=== PATIENT | male | born 1940 | race Caucasian/White ===

== ENCOUNTER 2016-06-08 11:02 | Inpatient (IN) | payer OTHER ==
[~2016-06-08] VITALS: Ht 182.9 cm; Wt 83.6 kg
[~2016-06-08 11:02] MED LIST: ASPIR 8181 M1 PO; ASPIR-LOW81 M1 PO; COLACE CLEAR50 MG PO; COLACE50 MG PO; GRAFCO SILVER1 EACH TP; JAKAFI15 MG PO; LASIX20 MG PO; LEVAQUIN500 MG PO; METOPROLOL SUCC25 MG PO; METOPROLOL SUCC50 MG PO; MULTI-DAY VITA1 EACH PO; MULTIVITAMIN1 EAC2 PO; NEILMED SINUS1 EAC4 BOTH NARES; NEXIUM20 MG PO; NORVASC5 MG PO; ORAZINC220 MG PO; PHILLIPS'400 MG/5 M PO; PREVACID30 MG PO; Protonix PO; TOPROL XL6.25 MG PO; VITAMIN B122500 MCG PO; ZESTRIL2.5 MG PO; ZINC50 M1 PO; ZOFRAN4 MG PO
[2016-06-08 11:35] LABS: ADD MIUA? NO; BILIRUBIN NEGATIVE; BLOOD NEGATIVE; COLOR DK YELLOW ((YELLOW)); GLUCOSE (STRIP) NEGATIVE; KETONES NEGATIVE; LEUKOCYTES NEGATIVE; NITRITE NEGATIVE; PH, URINE 5.5 (5-8); PROTEIN (STRIP) 30; SPECIFIC GRAVITY 1.025 (1.000-1.030); UCUL ADDED? NO
[2016-06-08 11:44] LABS: HEMATOCRIT 30.9 % (38.0-50.0); MCH 24.8 PG (29.0-34.0); MCHC 30.7 G/DL (30.0-36.0); MCV 80.7 FL (86-99); MEAN PLAT.VOLUME 8.7 uM^3 (9.0-12.4); PLATELET COUNT 208 K/uL (156-360); RBC DIS.WIDTH-CV 19.9 % (11.8-14.6); RBC DIS.WIDTH-SD 55.7 % (39-53); RED BLOOD COUNT 3.83 M/uL (4.00-5.50)
[2016-06-08 11:46] LABS: WHITE BLOOD COUNT 8.4 K/uL (4.1-10.2)
[2016-06-08 11:50] LABS: INTER. NORMALIZED RATIO 1.2; PROTHROMBIN TIME 12.5 (9.2-11.2); PTT 30.7 (25-32)
[2016-06-08 11:51] LABS: CHLORIDE 106 mEq/L (99-109); POTASSIUM 4.3 mEq/L (3.7-5.4); SODIUM 141 mEq/L (136-147)
[2016-06-08 11:53] LABS: GLUCOSE 95 mg/dL (70-99)
[2016-06-08 11:54] LABS: ANION GAP 10 MEQ/L (2-14)
[2016-06-08 11:55] LABS: TOTAL BILIRUBIN 2.3 mg/dL (0.0-1.0)
[2016-06-08 11:57] LABS: ALKALINE PHOSPHATASE 148 IU/L (3-129); GFR ESTIMATE (CALCULATED) 49 mL/min/
[2016-06-08 11:58] LABS: UREA NITROGEN (BUN) 17 mg/dL (9-23)
[2016-06-08 12:00] LABS: LIPASE 15 U/L (1.0-51.0)
[2016-06-08] MEDS ORDERED: JAKAFI15 MG PO (18:50)
[2016-06-08] MEDS ORDERED: TOPROL XL25 MG PO (18:50)
[2016-06-08] MEDS ORDERED: B-121000 MC2 PO (18:54)
[2016-06-08] MEDS ORDERED: BACTROBAN OINTM22 GM TP (18:59)
[2016-06-08] MEDS ORDERED: TYLENOL EXTRA500 MG PO (19:00)
[2016-06-09 00:26] VITALS: BP 104/68
[2016-06-09 06:49] LABS: ANION GAP 9 MEQ/L (2-14); CHLORIDE 109 MEQ/L (99-109); GFR ESTIMATE (CALCULATED) 49 mL/min/; GLUCOSE 84 mg/dL (70-99); POTASSIUM 4.2 MEQ/L (3.7-5.4); SAMPLE HEMOLYSIS CHECK 0; SAMPLE ICTERIC CHECK 0; SAMPLE LIPEMIA CHECK 0; SODIUM 144 MEQ/L (136-147); UREA NITROGEN (BUN) 17 mg/dL (9-23)
[2016-06-09 07:09] LABS: HEMATOCRIT 25.7 % (38.0-50.0); MCH 25.2 PG (29.0-34.0); MCHC 31.1 G/DL (30.0-36.0); MCV 80.8 FL (86-99); RBC DIS.WIDTH-CV 20.2 % (11.8-14.6); RBC DIS.WIDTH-SD 58.8 % (39-53); RED BLOOD COUNT 3.18 M/uL (4.00-5.50); WHITE BLOOD COUNT 6.3 K/uL (4.1-10.2)
[2016-06-09 07:10] LABS: DELETE MACHINE DIFF? YES
[2016-06-09 07:35] LABS: ABS NEUTROPHIL COUNT 5.04; ANISOCYTOSIS 1+; MICROCYTOSIS 1+; OVALOCYTES 1+; PLAT.SUFFICIENCY DECREASED; POLYCHROMASIA 1+; SCHISTOCYTES OCC; TEAR DROP CELLS 1+; USER ID TLN
[2016-06-09 07:39] LABS: PLATELET COUNT 137 K/uL (156-360)
[2016-06-09 08:00] VITALS: BP 104/61
[2016-06-09 14:07] VITALS: BP 116/68
[2016-06-09 17:10] VITALS: BP 107/71
[2016-06-09 21:09] VITALS: BP 112/80
[2016-06-10] VITALS (7 sets, daily range): BP systolic 100–122; BP diastolic 65–84
[2016-06-10 07:09] LABS: HEMATOCRIT 25.4 % (38.0-50.0); MCHC 30.7 G/DL (30.0-36.0); MCV 81.4 FL (86-99); MEAN PLAT.VOLUME 9.1 uM^3 (9.0-12.4); PLATELET COUNT 127 K/uL (156-360); RBC DIS.WIDTH-CV 20.3 % (11.8-14.6); RBC DIS.WIDTH-SD 58.6 % (39-53); RED BLOOD COUNT 3.12 M/uL (4.00-5.50)
[2016-06-10 07:38] LABS: ALKALINE PHOSPHATASE 96 IU/L (3-129); ANION GAP 8 MEQ/L (2-14); CHLORIDE 108 MEQ/L (99-109); GFR ESTIMATE (CALCULATED) 53 mL/min/; GLUCOSE 83 mg/dL (70-99); SAMPLE HEMOLYSIS CHECK 0; SAMPLE ICTERIC CHECK 0; SAMPLE LIPEMIA CHECK 0; SODIUM 142 MEQ/L (136-147); TOTAL BILIRUBIN 1.4 MG/DL (0.0-1.0); UREA NITROGEN (BUN) 18 mg/dL (9-23)
[2016-06-10 07:39] LABS: POTASSIUM 5.1 MEQ/L (3.7-5.4)
[2016-06-10 11:28] LABS: POINT-OF-CARE METER ID UU13113725
[2016-06-11 03:55] VITALS: BP 106/59
[2016-06-11 05:56] LABS: HEMATOCRIT 25.5 % (38.0-50.0); MCH 24.8 PG (29.0-34.0); MCHC 30.6 G/DL (30.0-36.0); MCV 81.2 FL (86-99); MEAN PLAT.VOLUME 9.8 uM^3 (9.0-12.4); PLATELET COUNT 132 K/uL (156-360); RBC DIS.WIDTH-CV 20.1 % (11.8-14.6); RBC DIS.WIDTH-SD 59.5 % (39-53); RED BLOOD COUNT 3.14 M/uL (4.00-5.50); WHITE BLOOD COUNT 6.9 K/uL (4.1-10.2)
[2016-06-11 07:57] VITALS: BP 114/69
[2016-06-11 16:05] VITALS: BP 108/70
[2016-06-11 23:23] VITALS: BP 106/68
[2016-06-12] VITALS (7 sets, daily range): BP systolic 100–112; BP diastolic 65–75
[2016-06-12 09:54] LABS: HEMATOCRIT 29.5 % (38.0-50.0); MCH 25.3 PG (29.0-34.0); MCHC 30.8 G/DL (30.0-36.0); MCV 81.9 FL (86-99); MEAN PLAT.VOLUME 9.5 uM^3 (9.0-12.4); PLATELET COUNT 163 K/uL (156-360); RBC DIS.WIDTH-CV 19.6 % (11.8-14.6); RBC DIS.WIDTH-SD 58.1 % (39-53)
[2016-06-12 10:34] LABS: ANION GAP 11 MEQ/L (2-14); CHLORIDE 106 MEQ/L (99-109); GFR ESTIMATE (CALCULATED) 49 mL/min/; SAMPLE HEMOLYSIS CHECK 0; SAMPLE ICTERIC CHECK 0; SAMPLE LIPEMIA CHECK 0; SODIUM 142 MEQ/L (136-147); UREA NITROGEN (BUN) 13 mg/dL (9-23)
[2016-06-12 10:35] LABS: GLUCOSE 137 mg/dL (70-99)
[2016-06-12 10:50] LABS: C DIFF TOXIN NEGATIVE (NEGATIVE)
[2016-06-12 10:57] LABS: PROBE CHECK PASS; SPECIMEN PROCESSING CONTROL PASS
[2016-06-13 06:42] LABS: HEMATOCRIT 27.7 % (38.0-50.0); MCH 25.3 PG (29.0-34.0); MCV 81.5 FL (86-99); MEAN PLAT.VOLUME 9.9 uM^3 (9.0-12.4); PLATELET COUNT 135 K/uL (156-360); RBC DIS.WIDTH-CV 19.7 % (11.8-14.6); RBC DIS.WIDTH-SD 58.4 % (39-53); WHITE BLOOD COUNT 7.6 K/uL (4.1-10.2)
[2016-06-13 07:20] LABS: ANION GAP 8 MEQ/L (2-14); CHLORIDE 110 MEQ/L (99-109); GFR ESTIMATE (CALCULATED) 53 mL/min/; MAGNESIUM 1.9 mg/dl (1.3-2.7); POTASSIUM 3.9 MEQ/L (3.7-5.4); SAMPLE HEMOLYSIS CHECK 0; SAMPLE ICTERIC CHECK 0; SAMPLE LIPEMIA CHECK 0; SODIUM 144 MEQ/L (136-147); UREA NITROGEN (BUN) 12 mg/dL (9-23)
[2016-06-13 07:23] LABS: GLUCOSE 82 mg/dL (70-99)
[2016-06-13 08:00] VITALS: BP 103/66
[2016-06-13 09:10] VITALS: BP 99/61
[2016-06-13 17:24] VITALS: BP 97/63
[2016-06-13 23:45] VITALS: BP 114/73
[2016-06-14 07:17] VITALS: BP 111/73
[2016-06-14 07:18] LABS: HEMATOCRIT 28.2 % (38.0-50.0); MCH 26.1 PG (29.0-34.0); MCHC 31.6 G/DL (30.0-36.0); MCV 82.7 FL (86-99); PLATELET COUNT 119 K/uL (156-360); RBC DIS.WIDTH-CV 19.7 % (11.8-14.6); RED BLOOD COUNT 3.41 M/uL (4.00-5.50); WHITE BLOOD COUNT 6.3 K/uL (4.1-10.2)
[2016-06-14 07:44] LABS: ANION GAP 10 MEQ/L (2-14); CHLORIDE 111 MEQ/L (99-109); GFR ESTIMATE (CALCULATED) 57 mL/min/; GLUCOSE 78 mg/dL (70-99); SAMPLE HEMOLYSIS CHECK 0; SAMPLE ICTERIC CHECK 0; SAMPLE LIPEMIA CHECK 0; SODIUM 144 MEQ/L (136-147); UREA NITROGEN (BUN) 13 mg/dL (9-23)
[2016-06-14 17:58] VITALS: BP 104/66
[2016-06-14 23:41] VITALS: BP 113/66
[2016-06-15 07:00] VITALS: BP 117/75
[2016-06-15 07:19] LABS: HEMATOCRIT 28.9 % (38.0-50.0); MCH 25.1 PG (29.0-34.0); MCHC 30.4 G/DL (30.0-36.0); MCV 82.3 FL (86-99); MEAN PLAT.VOLUME 9.4 uM^3 (9.0-12.4); PLATELET COUNT 130 K/uL (156-360); RBC DIS.WIDTH-SD 59.8 % (39-53); RED BLOOD COUNT 3.51 M/uL (4.00-5.50); WHITE BLOOD COUNT 6.5 K/uL (4.1-10.2)
[2016-06-15 07:42] LABS: ANION GAP 7 MEQ/L (2-14); CHLORIDE 110 MEQ/L (99-109); GFR ESTIMATE (CALCULATED) 49 mL/min/; GLUCOSE 77 mg/dL (70-99); SAMPLE HEMOLYSIS CHECK 0; SAMPLE ICTERIC CHECK 0; SAMPLE LIPEMIA CHECK 0; SODIUM 143 MEQ/L (136-147); UREA NITROGEN (BUN) 13 mg/dL (9-23)
[2016-06-15 15:00] VITALS: BP 109/67
[2016-06-15] MEDS ORDERED: NIFEREX-150,FE150 MG PO (15:08)
[2016-06-15] MEDS ORDERED: LEVOFLOXACIN750 MG PO (15:08)
[2016-06-15] MEDS ORDERED: POLYETHYLENE GL17 GM PO (15:08)
== END 2016-06-15 16:47 | disposition home or self-care (01) | DRG 920 ==
LOC: EME 11:02 → 5EAST 15:57 → EDOF 15:57 → 5EAST 22:47
PROVIDERS: Hospitalist; Internal Medicine; Surgery
PROC: 30233N1 Transfusion of Nonautologous Red Blood Cells into Peripheral Vein, Percutaneous Approach (ICD-10-PCS; principal; 2016-06-12)
DX: T85.79XA Infection and inflammatory reaction due to other internal prosthetic devices, implants and grafts, initial encounter (principal); Y83.8 Other surgical procedures as the cause of abnormal reaction of the patient, or of later complication, without mention of misadventure at the time of the procedure; L03.311 Cellulitis of abdominal wall; L02.211 Cutaneous abscess of abdominal wall; K63.2 Fistula of intestine; N13.4 Hydroureter; K76.6 Portal hypertension; I50.22 Chronic systolic (congestive) heart failure; K74.60 Unspecified cirrhosis of liver; I12.9 Hypertensive chronic kidney disease with stage 1 through stage 4 chronic kidney disease, or unspecified chronic kidney disease; N18.9 Chronic kidney disease, unspecified; E78.5 Hyperlipidemia, unspecified; D47.4 Osteomyelofibrosis; D63.8 Anemia in other chronic diseases classified elsewhere; I86.8 Varicose veins of other specified sites; R16.1 Splenomegaly, not elsewhere classified; D56.1 Beta thalassemia; K21.9 Gastro-esophageal reflux disease without esophagitis; K82.8 Other specified diseases of gallbladder; R64 Cachexia; J90 Pleural effusion, not elsewhere classified; I42.8 Other cardiomyopathies; K43.9 Ventral hernia without obstruction or gangrene; G89.21 Chronic pain due to trauma; M54.9 Dorsalgia, unspecified; M48.02 Spinal stenosis, cervical region; D45 Polycythemia vera; I70.0 Atherosclerosis of aorta; R19.7 Diarrhea, unspecified; N28.1 Cyst of kidney, acquired; N21.0 Calculus in bladder; N40.0 Benign prostatic hyperplasia without lower urinary tract symptoms; N52.9 Male erectile dysfunction, unspecified; Z86.14 Personal history of Methicillin resistant Staphylococcus aureus infection; Z85.038 Personal history of other malignant neoplasm of large intestine; Z85.828 Personal history of other malignant neoplasm of skin; Z87.891 Personal history of nicotine dependence
CPT/HCPCS: 71010; 74176; 76705; 80048; 80053; 80202; 81003; 82565; 82948; 83690; 83735; 85025; 85027; 85610; 85730; 86850; 86900; 86901; 86920; 87040; 87070; 87205; 87493; 89051; 93005; 94640; 94799; 99202; 99281; 99285; J0692; J1650; J1956; J3370; J7050; P9040; S0073

== ENCOUNTER → 2016-06-30 | Outpatient (CLI) | payer OTHER ==
[~2016-06-30] MED LIST changes: +B-121000 MC2 PO; +BACTROBAN OINTM22 GM TP; +LEVOFLOXACIN750 MG PO; +NIFEREX-150,FE150 MG PO; +POLYETHYLENE GL17 GM PO; +TOPROL XL25 MG PO; +TYLENOL EXTRA500 MG PO
== END | disposition home or self-care (01) ==
LOC: RAD 07:48
DX: R18.8 Other ascites (principal); R10.9 Unspecified abdominal pain; Z53.09 Procedure and treatment not carried out because of other contraindication
CPT/HCPCS: 76705

== ENCOUNTER → 2016-12-21 | Outpatient (CLI) | payer OTHER ==
[~2016-12-21] MED LIST changes: +DOXYCYCLINE HY100 M3 PO; +JAKAFI20 MG PO; +KEFLEX500 MG PO; +SPIRONOLACTONE25 MG PO; +SPIRONOLACTONE50 MG PO; -TOPROL XL25 MG PO; +TOPROL XL50 MG PO
== END | disposition home or self-care (01) ==
LOC: RAD 13:11
PROC: 0W9G3ZZ Drainage of Peritoneal Cavity, Percutaneous Approach (ICD-10-PCS; principal; 2016-12-21)
DX: R18.8 Other ascites (principal)
CPT/HCPCS: 49083

== ENCOUNTER → 2017-01-03 | Outpatient (CLI) | payer OTHER | END | disposition home or self-care (01) | LOC: RAD 08:11 | PROC: 0W9G3ZZ Drainage of Peritoneal Cavity, Percutaneous Approach (ICD-10-PCS; principal; 2017-01-03) | DX: R18.8 Other ascites (principal) | CPT/HCPCS: 49083 ==

== ENCOUNTER 2017-01-04 17:42 | Inpatient (IN) | payer OTHER ==
[~2017-01-04] VITALS: Ht 182.9 cm; Wt 75.2 kg
[~2017-01-04 17:42] MED LIST changes: -DOXYCYCLINE HY100 M3 PO; -KEFLEX500 MG PO; -SPIRONOLACTONE25 MG PO
[2017-01-04 19:00] LABS: HEMATOCRIT 23.3 % (38.0-50.0); MCH 28.5 PG (29.0-34.0); MCHC 33.5 G/DL (30.0-36.0); MEAN PLAT.VOLUME 9.1 uM^3 (9.0-12.4); NRBC (%) 2.7 /100 WBC (0-0); PLATELET COUNT 133 K/uL (156-360); RBC DIS.WIDTH-CV 18.6 % (11.8-14.6); RBC DIS.WIDTH-SD 56.6 % (39-53); RED BLOOD COUNT 2.74 M/uL (4.00-5.50); WHITE BLOOD COUNT 8.6 K/uL (4.1-10.2)
[2017-01-04 19:13] LABS: CHLORIDE 101 mEq/L (99-109); POTASSIUM 4.6 mEq/L (3.7-5.4); SODIUM 131 mEq/L (136-147)
[2017-01-04 19:15] LABS: GLUCOSE 97 mg/dL (70-99)
[2017-01-04 19:16] LABS: ANION GAP 6 MEQ/L (2-14)
[2017-01-04 19:19] LABS: GFR ESTIMATE (CALCULATED) 33 mL/min/
[2017-01-04 19:20] LABS: UREA NITROGEN (BUN) 29 mg/dL (9-23)
[2017-01-04 19:27] LABS: TROP-I INTERPRETATION NEGATIVE; TROPONIN-I 0.15 ng/mL (0.0-0.30)
[2017-01-05] VITALS (14 sets, daily range): BP systolic 92–112; BP diastolic 55–87
[2017-01-05 00:51] LABS: METH RESISTANT S AUREUS PCR POSITIVE (NEGATIVE)
[2017-01-05 00:55] LABS: PROBE CHECK PASS
[2017-01-05 01:55] LABS: TROP-I INTERPRETATION NEGATIVE; TROPONIN-I 0.17 ng/mL (0.0-0.30)
[2017-01-05 09:56] LABS: ALKALINE PHOSPHATASE 89 IU/L (3-129); ANION GAP 8 MEQ/L (2-14); CHLORIDE 103 MEQ/L (99-109); GFR ESTIMATE (CALCULATED) 33 mL/min/; GLUCOSE 80 mg/dL (70-99); POTASSIUM 4.8 MEQ/L (3.7-5.4); SAMPLE HEMOLYSIS CHECK 0; SAMPLE ICTERIC CHECK 0; SAMPLE LIPEMIA CHECK 0; SODIUM 134 MEQ/L (136-147); UREA NITROGEN (BUN) 28 mg/dL (9-23)
[2017-01-05 10:22] LABS: TOTAL BILIRUBIN 0.9 MG/DL (0.0-1.0)
[2017-01-05 10:27] LABS: TROP-I INTERPRETATION NEGATIVE; TROPONIN-I 0.13 ng/mL (0.0-0.30)
[2017-01-05 10:50] LABS: HEMATOCRIT 25.2 % (38.0-50.0); MCH 27.9 PG (29.0-34.0); MCHC 32.5 G/DL (30.0-36.0); MCV 85.7 FL (86-99); MEAN PLAT.VOLUME 10.1 uM^3 (9.0-12.4); NRBC (%) 2.4 /100 WBC (0-0); PLAT.SUFFICIENCY ADEQUATE; PLATELET COUNT 163 K/uL (156-360); RBC DIS.WIDTH-CV 18.9 % (11.8-14.6); RED BLOOD COUNT 2.94 M/uL (4.00-5.50); WHITE BLOOD COUNT 8.5 K/uL (4.1-10.2)
[2017-01-06] VITALS: BP 102/60
[2017-01-06 01:15] VITALS: BP 106/60
[2017-01-06 04:27] VITALS: BP 112/59
[2017-01-06 05:49] LABS: TROP-I INTERPRETATION NEGATIVE
[2017-01-06 08:10] VITALS: BP 91/58
[2017-01-06 12:10] VITALS: BP 107/64
[2017-01-06 12:57] LABS: TROP-I INTERPRETATION NEGATIVE; TROPONIN-I 0.07 ng/mL (0.0-0.30)
[2017-01-06] MEDS ORDERED: SPIRONOLACTONE25 MG PO (13:59)
[2017-01-06] MEDS ORDERED: DOXYCYCLINE HY100 M3 PO (13:59)
[2017-01-06] MEDS ORDERED: KEFLEX500 MG PO (14:02)
== END 2017-01-06 16:02 | disposition home or self-care (01) | DRG 809 ==
LOC: EME 17:42 → EDOF 21:08 → 5WEST 21:08 → ENRESERV 21:14 → 5WEST 22:10 → ENRESERV 01-05 14:25 → 5WEST 01-06 16:02
PROVIDERS: Emergency Medicine; Internal Medicine; Physician Assistant Medical
PROC: 30233N1 Transfusion of Nonautologous Red Blood Cells into Peripheral Vein, Percutaneous Approach (ICD-10-PCS; principal; 2017-01-05)
DX: D61.818 Other pancytopenia (principal); I95.9 Hypotension, unspecified; I13.0 Hypertensive heart and chronic kidney disease with heart failure and stage 1 through stage 4 chronic kidney disease, or unspecified chronic kidney disease; D75.81 Myelofibrosis; I42.9 Cardiomyopathy, unspecified; I50.42 Chronic combined systolic (congestive) and diastolic (congestive) heart failure; D45 Polycythemia vera; E87.1 Hypo-osmolality and hyponatremia; R18.8 Other ascites; R07.2 Precordial pain; E86.0 Dehydration; L03.116 Cellulitis of left lower limb; E78.5 Hyperlipidemia, unspecified; E88.09 Other disorders of plasma-protein metabolism, not elsewhere classified; I07.1 Rheumatic tricuspid insufficiency; I35.0 Nonrheumatic aortic (valve) stenosis; K21.9 Gastro-esophageal reflux disease without esophagitis; N18.3 Chronic kidney disease, stage 3 (moderate); S80.862S Insect bite (nonvenomous), left lower leg, sequela; W57.XXXS Bitten or stung by nonvenomous insect and other nonvenomous arthropods, sequela; Z79.899 Other long term (current) drug therapy; Z80.0 Family history of malignant neoplasm of digestive organs; Z80.8 Family history of malignant neoplasm of other organs or systems; Z85.038 Personal history of other malignant neoplasm of large intestine; Z87.891 Personal history of nicotine dependence; Z90.49 Acquired absence of other specified parts of digestive tract; R06.02 Shortness of breath; R16.1 Splenomegaly, not elsewhere classified; R19.7 Diarrhea, unspecified; R74.8 Abnormal levels of other serum enzymes; R94.31 Abnormal electrocardiogram [ECG] [EKG]
CPT/HCPCS: 49083; 80048; 80053; 82140; 83880; 84484; 85025; 85027; 85610; 85730; 86900; 86901; 86920; 87641; 93005; 93306; 99281; 99285; G0378; J0690; J1200; J1644; J1940; J7030; J7050; P9016

== ENCOUNTER 2017-02-05 12:44 | Emergency (ER) | payer OTHER ==
[~2017-02-05] VITALS: Ht 182.9 cm; Wt 76.3 kg
[~2017-02-05 12:44] MED LIST changes: +DOXYCYCLINE HY100 M3 PO; +KEFLEX500 MG PO; +SPIRONOLACTONE25 MG PO
[2017-02-05 14:51] LABS: HEMATOCRIT 25.5 % (38.0-50.0); MCH 28.6 PG (29.0-34.0); MCHC 33.3 G/DL (30.0-36.0); MCV 85.9 FL (86-99); MEAN PLAT.VOLUME 9.6 uM^3 (9.0-12.4); NRBC (%) 7.1 /100 WBC (0-0); RED BLOOD COUNT 2.97 M/uL (4.00-5.50); WHITE BLOOD COUNT 6.6 K/uL (4.1-10.2)
[2017-02-05 15:02] LABS: CHLORIDE 100 mEq/L (99-109); POTASSIUM 4.3 mEq/L (3.7-5.4); SODIUM 134 mEq/L (136-147)
[2017-02-05 15:04] LABS: GLUCOSE 96 mg/dL (70-99)
[2017-02-05 15:06] LABS: ANION GAP 10 MEQ/L (2-14); TOTAL BILIRUBIN 1.7 mg/dL (0.0-1.0)
[2017-02-05 15:08] LABS: ALKALINE PHOSPHATASE 121 IU/L (3-129); GFR ESTIMATE (CALCULATED) 28 mL/min/
[2017-02-05 15:09] LABS: UREA NITROGEN (BUN) 33 mg/dL (9-23)
[2017-02-05 15:18] LABS: PLATELET COUNT 62 K/uL (156-360)
[2017-02-05 15:32] LABS: ABS NEUTROPHIL COUNT 5.6; ANISOCYTOSIS 2+; BAND NEUTROPHILS 18.9 % (0-8.0); EOSINOPHIL ABS CT 0; INSTRUMENT ABS NEUTROPHIL CT 4.4 K/uL; LYMPHOCYTES 6.3 % (15.0-45.0); METAMYELOCYTES 1.8 %; MICROCYTOSIS 2+; MYELOCYTES 6.3 %; NUCLEATED RBC'S 6.3; PLAT.SUFFICIENCY DECREASED; POIKILOCYTOSIS 2+; POLYCHROMASIA 1+; SCHISTOCYTES 1+; SEG.NEUTROPHILS 65.8 % (46.0-76.0); TEAR DROP CELLS 1+
[2017-02-05] MEDS ORDERED: ROXICODONE5 MG PO (19:42)
[2017-02-05 20:07] VITALS: BP 132/87
== END 2017-02-05 20:05 | disposition home or self-care (01) ==
LOC: EME 12:44
PROVIDERS: Emergency Medicine
DX: S33.5XXA Sprain of ligaments of lumbar spine, initial encounter (principal); W01.0XXA Fall on same level from slipping, tripping and stumbling without subsequent striking against object, initial encounter; N28.9 Disorder of kidney and ureter, unspecified; D69.6 Thrombocytopenia, unspecified; C94.6 Myelodysplastic disease, not elsewhere classified; I11.0 Hypertensive heart disease with heart failure; I50.9 Heart failure, unspecified; E78.5 Hyperlipidemia, unspecified; Z85.038 Personal history of other malignant neoplasm of large intestine; Z87.442 Personal history of urinary calculi; F32.9 Major depressive disorder, single episode, unspecified; Z87.891 Personal history of nicotine dependence; Z88.0 Allergy status to penicillin; F10.10 Alcohol abuse, uncomplicated; F19.10 Other psychoactive substance abuse, uncomplicated
CPT/HCPCS: 70450; 72100; 72125; 72220; 80053; 85025; 99281; 99285; J2405; J3010

== ENCOUNTER → 2017-02-14 | Outpatient (CLI) | payer OTHER ==
[~2017-02-14] MED LIST changes: +CEPHALEXIN500 MG PO; +DOXYCYCLINE HY100 MG PO; +ROXICODONE5 MG PO
== END | disposition home or self-care (01) ==
LOC: RAD 01-17 08:30
PROC: 0W9G3ZZ Drainage of Peritoneal Cavity, Percutaneous Approach (ICD-10-PCS; principal; 2017-02-14)
DX: R18.8 Other ascites (principal)
CPT/HCPCS: 49083